=== PATIENT | female | born 1990 | race Caucasian/White ===

== ENCOUNTER → 2017-04-12 | Outpatient (CLI) | payer BC | LOC: OD 07:59 | PROVIDERS: ATTEND Midwife | DX: O02.1 Missed abortion (principal) | CPT/HCPCS: 36415 ==

== ENCOUNTER 2018-03-04 09:55 | Outpatient (CLI) | payer MEDICAID ==
--- NOTE | 2018-03-04 10:32 | Non Stress Test Report ---
Non Stress Test Datetime Report Generated by CPN: 03/04/2018 10:32 DEMOGRAPHIC EGA NST: 38.5 EGA NST: 35.1 INDICATION Indication for Study: Ordered by Provider MONITORING Monitor Explained: Monitor Explained; Test Explained; Patient Verbalized Understanding Time on Monitor: 03/04/2018 10:09 Time off Monitor: 03/04/2018 10:30 NST Duration: 21 NST INTERVENTIONS NST Interventions: PO Hydration Physician Notified NST: A. Stapleton, CNM BABY A: [id number] BABY A Movement : Present Contraction Frequency : irritability FHR Baseline : 140 Accelerations : 15X15 Decelerations : None Variability : Moderate 6-25bpm NST Review: Meets Criteria for Reactive NST NST Review and Verified By : Jona Bellavance RN NST Results: Reactive NST REPORT Report Trigger: Send Report
[2018-03-04 11:12] LABS: ABSOLUTE LYMPHOCYTES (AUTO) 1.1 10^3/uL (0.5-4.7); ABSOLUTE MONOCYTES (AUTO) 0.5 10^3/uL (0.1-1.4); BASOPHILS % (AUTO) 0.3 % (0-2); EOSINOPHILS % (AUTO) 0.3 % (0-6); HEMATOCRIT 34.9 % (36.0-47.0); HEMOGLOBIN 12.2 g/dL (12.0-15.5); LYMPHOCYTES % (AUTO) 10.1 % (13-45); MEAN CORPUSCULAR HEMOGLOBIN 28.7 pg (27.0-33.4); MEAN CORPUSCULAR HGB CONC 35.1 g/dL (32.0-36.0); MEAN CORPUSCULAR VOLUME 82 fl (80-97); MONOCYTES % (AUTO) 4.8 % (3-13); PLATELET COUNT 142 10^3/uL (150-450); RED BLOOD COUNT 4.26 10^6/uL (3.72-5.28); RED CELL DISTRIBUTION WIDTH 14.7 % (11.5-14.0); SEGMENTED NEUTROPHILS % (AUTO) 84.5 % (42-78); TOTAL CELLS COUNTED % (AUTO) 100 %; WHITE BLOOD COUNT 10.6 10^3/uL (4.0-10.5)
[2018-03-04 11:19] LABS: APPEARANCE,URINE CLEAR; BILIRUBIN,URINE NEGATIVE (NEGATIVE); COLOR,URINE YELLOW; GLUCOSE, URINE NEGATIVE (NEGATIVE); KETONES,URINE TRACE mg/dL (NEGATIVE); LEUKOCYTE ESTERASE,URINE NEGATIVE (NEGATIVE); NITRITE,URINE NEGATIVE (NEGATIVE); PROTEIN,URINE NEGATIVE (NEGATIVE); URINE SPECIFIC GRAVITY 1.005; UROBILINOGEN,URINE NEGATIVE mg/dL (<2.0)
[2018-03-04 11:38] LABS: ALANINE AMINOTRANSFERASE 27 U/L (9-52); ALBUMIN 2.8 g/dL (3.5-5.0); ALKALINE PHOSPHATASE 103 U/L (38-126); ANION GAP 8 (5-19); ASPARTATE AMINO TRANSFERASE 19 U/L (14-36); BILIRUBIN,DIRECT 0.2 mg/dL (0.0-0.4); BILIRUBIN,TOTAL 0.6 mg/dL (0.2-1.3); BLOOD UREA NITROGEN 6 mg/dL (7-20); CALCIUM 8.5 mg/dL (8.4-10.2); CARBON DIOXIDE 23 mmol/L (22-30); CHLORIDE 109 mmol/L (98-107); GLUCOSE 86 mg/dL (75-110); POTASSIUM 3.5 mmol/L (3.6-5.0); TOTAL PROTEIN 4.9 g/dL (6.3-8.2); URIC ACID 4.7 mg/dL (2.5-6.2)
[2018-03-04 11:47] LABS: UR PRO/CREAT RATIO RESULT 0.4 mg/mg (0.0-0.2); URINE CREATININE 44.8 mg/dL (16-327); URINE PROTEIN 18.7 mg/dL (<12)
[2018-03-04 11:57] LABS: AMNISURE (ROM) NEGATIVE (NEGATIVE)
[2018-03-04 13:37] LABS: URINE AMPHETAMINES SCREEN NEGATIVE; URINE BARBITURATES SCREEN NEGATIVE; URINE BENZODIAZEPINES SCREEN NEGATIVE; URINE COCAINE SCREEN NEGATIVE; URINE MARIJUANA (THC) SCREEN NEGATIVE; URINE METHADONE SCREEN NEGATIVE; URINE PHENCYCLIDINE SCREEN NEGATIVE
== END 2018-03-04 12:27 | disposition home or self-care (01) ==
LOC: LC 09:55
PROVIDERS: ATTEND Obstetrics & Gynecology
PROC: 4A1HXCZ Monitoring of Products of Conception, Cardiac Rate, External Approach (ICD-10-PCS; principal; 2018-03-04)
DX: Z36.89 Encounter for other specified antenatal screening (principal)
CPT/HCPCS: 36415; 59025; 80053; 80307; 81005; 82570; 83615; 84112; 84156; 84550; 85025

== ENCOUNTER 2018-03-05 16:27 | Outpatient (CLI) | payer MEDICAID ==
[2018-03-05 17:16] LABS: AMNISURE (ROM) NEGATIVE (NEGATIVE)
[2018-03-05 17:16] LABS: APPEARANCE,URINE SLIGHTLY-CLOUDY; BILIRUBIN,URINE NEGATIVE (NEGATIVE); COLOR,URINE YELLOW; GLUCOSE, URINE NEGATIVE (NEGATIVE); KETONES,URINE NEGATIVE (NEGATIVE); LEUKOCYTE ESTERASE,URINE NEGATIVE (NEGATIVE); NITRITE,URINE NEGATIVE (NEGATIVE); PROTEIN,URINE NEGATIVE (NEGATIVE); URINE SPECIFIC GRAVITY 1.006; UROBILINOGEN,URINE NEGATIVE mg/dL (<2.0)
[2018-03-05 17:36] LABS: URINE AMPHETAMINES SCREEN NEGATIVE; URINE BARBITURATES SCREEN NEGATIVE; URINE BENZODIAZEPINES SCREEN NEGATIVE; URINE COCAINE SCREEN NEGATIVE; URINE MARIJUANA (THC) SCREEN NEGATIVE; URINE METHADONE SCREEN NEGATIVE; URINE PHENCYCLIDINE SCREEN NEGATIVE
--- NOTE | 2018-03-05 17:53 | Non Stress Test Report ---
Non Stress Test Datetime Report Generated by CPN: 03/05/2018 17:53 DEMOGRAPHIC EGA NST: 38.6 INDICATION Indication for Study: Other Indication for Study (NST) Other: Labor check MONITORING Monitor Explained: Monitor Explained; Test Explained; Patient Verbalized Understanding Time on Monitor: 03/05/2018 17:00 Time off Monitor: 03/05/2018 17:38 NST Duration: 38 NST INTERVENTIONS NST Interventions: PO Hydration Physician Notified NST: Dr. Derrick BABY A: [id number] BABY A Movement : Present Contraction Frequency : Irregular FHR Baseline : 135 Accelerations : 15X15 Decelerations : None Variability : Moderate 6-25bpm NST Review: Meets Criteria for Reactive NST NST Review and Verified By : GEOFF Ballard Results: Reactive NST REPORT Report Trigger: Send Report
== END 2018-03-05 17:50 | disposition home or self-care (01) ==
LOC: LC 16:27
PROVIDERS: ATTEND Obstetrics & Gynecology
PROC: 4A1HXCZ Monitoring of Products of Conception, Cardiac Rate, External Approach (ICD-10-PCS; principal; 2018-03-05)
DX: Z36.89 Encounter for other specified antenatal screening (principal)
CPT/HCPCS: 59025; 84112; 81005; 80307; Q0114

== ENCOUNTER 2018-03-06 05:05 | Inpatient (IN) | payer MEDICAID ==
[2018-03-06 05:29] LABS: APPEARANCE,URINE CLEAR; BILIRUBIN,URINE NEGATIVE (NEGATIVE); COLOR,URINE YELLOW; GLUCOSE, URINE NEGATIVE (NEGATIVE); KETONES,URINE NEGATIVE (NEGATIVE); LEUKOCYTE ESTERASE,URINE NEGATIVE (NEGATIVE); NITRITE,URINE NEGATIVE (NEGATIVE); PROTEIN,URINE NEGATIVE (NEGATIVE); URINE SPECIFIC GRAVITY 1.004; UROBILINOGEN,URINE NEGATIVE mg/dL (<2.0)
[2018-03-06 05:47] LABS: URINE AMPHETAMINES SCREEN NEGATIVE; URINE BARBITURATES SCREEN NEGATIVE; URINE BENZODIAZEPINES SCREEN NEGATIVE; URINE COCAINE SCREEN NEGATIVE; URINE MARIJUANA (THC) SCREEN NEGATIVE; URINE METHADONE SCREEN NEGATIVE; URINE PHENCYCLIDINE SCREEN NEGATIVE
--- NOTE | 2018-03-06 07:05 | Non Stress Test Report ---
Non Stress Test Datetime Report Generated by CPN: 03/06/2018 07:05 DEMOGRAPHIC EGA NST: 39.0 INDICATION Indication for Study: Ordered by Provider Indication for Study (NST) Other: LC URINE RESULTS Urine Protein, NST: Negative Urine Ketones - NST: Negative Urine Glucose - NST: Negative Urine Blood - NST: Negative MONITORING Time on Monitor: 03/06/2018 05:23 Time off Monitor: 03/06/2018 05:58 NST Duration: 35 NST INTERVENTIONS NST Interventions: PO Hydration Physician Notified NST: Derrick BABY A: [id number] BABY A Movement : Present Contraction Frequency : 3-6 FHR Baseline : 135 Accelerations : 15X15 Decelerations : None Variability : Moderate 6-25bpm NST Review: Meets Criteria for Reactive NST NST Review and Verified By : TETO Tanner NST Results: Reactive NST REPORT Report Trigger: Send Report
[2018-03-06] MEDS ORDERED: RINGERS SOLUTION,LACTATED 1,000 ML IV ONE (08:33)
[2018-03-06] MEDS ORDERED: MISOPROSTOL 0.2 MG TABLET ONE (09:11)
[2018-03-06] MEDS ORDERED: EPHEDRINE SULFATE INJ 50 MG/1 ML AMPULE ONE (09:12)
[2018-03-06] MEDS ORDERED: FENTANYL/BUPIVACAINE/NS/PF 300 MCG/150 ML RTUINJ EPI ONE (09:12)
[2018-03-06] MEDS ORDERED: LIDOCAINE 1% INJ-PF (10 MG/ML) 30 ML SDV ONE (09:12)
[2018-03-06] MEDS ORDERED: OXYTOCIN/NORMAL SALINE 20 UNIT/1,000 ML RTUINJ ONE (09:13)
[2018-03-06] MEDS ORDERED: BUPIVACAINE HCL 0.25 % INJ/PF (2.5 MG/1 ML) 30 ML VIAL ONE (09:13)
[2018-03-06 10:04] LABS: ABSOLUTE MONOCYTES (AUTO) 0.5 10^3/uL (0.1-1.4); ABSOLUTE NEUT (AUTO) 11.2 10^3/uL (1.7-8.2); BASOPHILS % (AUTO) 0.3 % (0-2); EOSINOPHILS % (AUTO) 0.1 % (0-6); LYMPHOCYTES % (AUTO) 7.7 % (13-45); MEAN CORPUSCULAR HGB CONC 34.2 g/dL (32.0-36.0); MEAN CORPUSCULAR VOLUME 82 fl (80-97); MONOCYTES % (AUTO) 3.9 % (3-13); PLATELET COUNT 142 10^3/uL (150-450); RED BLOOD COUNT 4.27 10^6/uL (3.72-5.28); RED CELL DISTRIBUTION WIDTH 14.7 % (11.5-14.0); TOTAL CELLS COUNTED % (AUTO) 100 %; WHITE BLOOD COUNT 12.7 10^3/uL (4.0-10.5)
--- NOTE | 2018-03-06 10:13 | Admission Physical ---
Datetime Report Generated by CPN: 03/06/2018 10:13 CURRENT ADMISSION Hx Assessment: The History has been Reviewed and is Current Chief Complaint: Uterine Contractions Indication for Induction: Not Applicable Admit Impression : Term, Intrauterine ; Active Labor Admit Plan: Admit to Unit; Initiate Labor Protocol ALLERGIES Medication Allergies: No Medication Allergies: No Known Allergies (03/06/2018) Latex: No Latex Allergies OBSTETRICAL HISTORY EDC: 03/13/2018 00:00 : 3 Para: 0 Term: 0 : 0 SAB: 2 IAB: 0 Ectopic: 0 Livin Cesareans: 0 VBACs: 0 Multiple Births: 0 Gestational Diabetes: No Rh Sensitization: No Incompetent Cervix: No FADUMO: No Infertility: No ART Treatment: No Uterine Anomaly: No IUGR: No Hx Previous C/S: No Macrosomia: No Hx Loss/Stillborn: No PIH: No Hx : No Placenta Previa/Abruption: No Depression/PP Depression: No PTL/PROM: No Post Hemorrhage: No Current Procedures: Ultrasound Obstetrical History Comments: G1- 2015 G2- 2016 G3- current SEE RECORDS Alcohol: No Marijuana : No Cocaine: No Other Illicit Drugs: No Cigarettes: Never Smoker. [id number] MEDICAL HISTORY Diabetes: No Blood Transfusion: No Pulmonary Disease (Asthma, TB): No Breast Disease: No Hypertension: No Breast Surgeon Surgery: No Heart Disease: No Hosp/Surgery: Yes Autoimmune Disorder: No Anesthetic Complications: No Kidney Disease: No Abnormal Pap Smear: No Neuro/Epilepsy: No Psychiatric Disorders: No Other Medical Diseases: No Hepatitis/Liver Disease: No Significant Family History: No Varicosities/Phlebitis: No Trauma/Violence : No Thyroid Dysfunction: No Medical History Comments: wisdom teeth INFECTIOUS HISTORY Gonorrhea: No Chlamydia: No Tuberculosis: No Syphilis: No Hepatitis: No HIV/AIDS Exposure: No Rash or Viral Illness: No HPV: No PHYSICAL EXAM General: Normal HEENT: Deferred Neurologic: Normal Thyroid: Deferred Heart: Normal Lungs: Normal Breast: Deferred Back: Normal Abdomen: Normal Genitourinary Exam: Normal Extremities: Abnormal DTRs: Normal Pelvic Type: Adequate Physical Exam Comments: +3 bilateral lower extremety- pitting edema adequate pelvis per exam Vital Signs: Reviewed Details Vital Signs: mild range BP with 1 severe range VAGINAL EXAM Dilatation: 8 Effacement: 100 Station: -1 Contraction Comments: 3-5 MEMBRANES Membranes: Bulging FETUS A EGA: 39.0 Monitoring: External US Variability: Moderate 6-25bpm Accelerations: 15X15 FHR Category: Category I Estimated Weight (gm): 4089 Presentation: Vertex Admit Comment: 27yo at 39wga into L_D this AM with cervical change. Pt was dx with GHTN earlier this week and completed 24h urine last night, which she was to return this afternoon and will have family bring in for results. Protein/creatinine Ratio 0.4 Sunday and with mild range BPs today so likely pre-e. Denies s/s. also complicated with Dx of Polyhydramnious LESLEY 27cm on 03/04 and suspected macrosomia. Significant medical hx of Acid Reflux, IBS and stomach ulcer in 2013. Also significant for lower extremity varicosities and depression, well controlled and not on medication. Pt. is A pos, RI and GBS neg. Reports positive FM and no concerns other than contractions strong contractions since 2244 last night. Anticipate Vaginal delivery, labor progressing well. Waiting on lab results for epidural placement. PLANS FOR LABOR AND DELIVERY Labor and Delivery: None Pain Management: Epidural Feeding Preference: Breast Benefit of Breast Feed Discussed: Yes Circumcision: Yes INFORMED CONSENT Assignment: Nicanor Pearl MD Signature: with User ID: Rosario : with User ID: Rosario
--- NOTE | 2018-03-06 12:01 | L&D Progress Notes ---
PROGRESS NOTES Datetime Report Generated by CPN: 03/06/2018 12:00 PROGRESS NOTE Impression: Normal Progression of Labor Procedures: Sterile Vag Exam Plan: Continue Present Management Informed Consent Obtained: Vaginal Delivery; Risks, Benefits and Alternatives Discussed Vital Signs : Reviewed Vital Signs Comments: wnl since last exam except for 1 elevated as noted Comment: S: pt. comfortable with epidural placement. Reports complete relief of pain with epidural placement O:VSS (x1 elevation), cervix as stated with asynclitic head A: IUP @ 39w stable, progressing well, ROM with exam -large amount of mec stained fluid P: continue expectant management anticipate delivery, nursery aware of mec. stained fluid. VAGINAL EXAM Dilatation: 8-9 Dilatation: 8 Effacement: 100 Effacement: 100 Station: 0 Station: -1 Contractions: 2-4 Contractions: 3-5 MEMBRANES Membranes: Ruptured Membranes: Bulging Amniotic Fluid Color: Meconium, Light FETUS A Monitoring: External US Variability: Moderate 6-25bpm Accelerations: 15X15 Decelerations: None FHR Category: Category I Estimated Weight (gm): 4089 Presentation: Vertex SIGNATURE SIGNATURE: [id number];14,[id number];13,[id number] SIGNATURE: 13,[id number];14,[id number] SIGNATURE: 14,[id number] SIGNATURE: 14,[id number] SIGNATURE: 14,[id number] SIGNATURE: 14,[id number] Assignment: Nicanor Pearl MD Signature: with User ID: Rosario : with User ID: Rosario
[2018-03-06] MEDS ORDERED: CITRIC ACID/SODIUM CITRATE ORAL SOLN 15 ML UDCUP ONE (13:23)
[2018-03-06] MEDS ORDERED: MORPHINE SULFATE 10 MG/ML INJ ONE (17:21)
--- NOTE | 2018-03-06 18:15 | Warning Signs in Babies ---
VOD Warning Signs Datetime Report Generated by [facility]: 03/06/2018 18:14 VOD#608 -Warning Signs in Babies: Needs to be viewed. (02/07/2018 17:48:Ángel Cook RN)
[2018-03-06] MEDS ORDERED: IBUPROFEN 800 MG TABLET ONE (18:20)
[2018-03-06] MEDS ORDERED: ACETAMINOPHEN WITH CODEINE #3 TABLET ONE (18:20)
[2018-03-06] MEDS ORDERED: GLYCERIN/WITCH HAZEL LEAF 1 EACH MED..PAD TP PRN (18:29)
[2018-03-06] MEDS ORDERED: PROMETHAZINE HCL INJ 25 MG/1 ML VIAL IV PRN (18:29)
[2018-03-06] MEDS ORDERED: ACETAMINOPHEN WITH CODEINE #3 TABLET PO PRN ×2 (18:29)
[2018-03-06] MEDS ORDERED: DIPH/PERTUSS(ACELL)/TETANUS VAC/PF 0.5 ML SYR (>=10YO) IM PRN (18:29)
[2018-03-06] MEDS ORDERED: NA PHOS,M-B/NA PHOS,DI-BA (ADULT) 133 ML ENEMA PR PRN (18:29)
[2018-03-06] MEDS ORDERED: MISOPROSTOL 0.2 MG TABLET PR PRN (18:29)
[2018-03-06] MEDS ORDERED: PSEUDOEPHEDRINE HCL 30 MG TABLET PO PRN (18:29)
[2018-03-06] MEDS ORDERED: MEASLES,MUMPS&RUBELLA VACC/PF 0.5 ML VIAL SUBCUT PRN (18:29)
[2018-03-06] MEDS ORDERED: OXYTOCIN/NORMAL SALINE 20 UNIT/1,000 ML RTUINJ IV PRN (18:29)
[2018-03-06] MEDS ORDERED: MAGNESIUM HYDROXIDE SUSP 30 ML UDCUP PO PRN (18:29)
[2018-03-06] MEDS ORDERED: DIBUCAINE 1% OINTMENT 28 GM TP PRN (18:29)
[2018-03-06] MEDS ORDERED: PROMETHAZINE HCL 25 MG SUPP.RECT PR PRN (18:29)
[2018-03-06] MEDS ORDERED: ACETAMINOPHEN 325 MG TABLET PO PRN (18:29)
[2018-03-06] MEDS ORDERED: DIPHENHYDRAMINE HCL 25 MG CAPSULE PO PRN (18:29)
[2018-03-06] MEDS ORDERED: BENZOCAINE/MENTHOL AEROSOL SPRAY 56 ML TOP PRN (18:29)
[2018-03-06] MEDS ORDERED: PROMETHAZINE HCL 25 MG TABLET PO PRN (18:29)
--- NOTE | 2018-03-06 18:59 | Warning Signs in Babies ---
VOD Warning Signs Datetime Report Generated by [facility]: 03/06/2018 18:59 VOD#608 -Warning Signs in Babies: Viewed with Parent(s)/Family (02/07/2018 17:48:Ángel Cook RN)
--- NOTE | 2018-03-06 19:46 | Delivery Summary ---
Del Sum A-C Datetime Report Generated by CPN: 03/06/2018 19:46 DELIVERY PERSONNEL DELIVERY PERSONNEL: [id number] Delivery Doctor:: Della Aldridge CNM Labor and Delivery Nurse:: Annabelle Ewing RNhydro plant site manager Nurse:: Ángel Cook RN [employer] Consultant/TOP CUTTER: Isis Edward, FLAT IRONER [employer] Consultant/TOP CUTTER: Ana Laura Aguayo TOP CUTTER II MATERNAL INFORMATION Delivery Anesthesia: Epidural Medications After Delivery: Pitocin Drip 20 Units/1000ml NSS; Cytotec 800mcg Per Rectum/Vagina Maternal Complications: None Provider Comments: Pt. progressed to c/c/+1 with urge to push, began pushing and with much effort went on to deliver a viable baby boy in OA position which then restituted to ONIEL. Baby with strong respiratory effort and cry spontaneously at . Baby placed on maternal abdomen skin to skin, cord allowed to stop pulsating then clamped x2 and cut by FOB, cord blood obtained. Placenta delivered spontaneously intact 3vc noted, sent to lab. Fundus firm @ U-1 moderate bleeding which was then found to be coming from bilateral sidewall lacerations which were repaired as stated and hemostatic. Poor tissue integrity making perineal repair difficult. Dr. Pearl in room and repaired MLL and right labial extension which were well approximated and hemostatic. cytotec given 800mcg VT given for precaution. Pt. and baby in room stable at this time. Nursery in room for delivery due to particulate meconium. Bleeding stable. Labs reviewed 24hr urine back and pre-eclampsia confirmed by labs. LABOR SUMMARY EDC: 03/13/2018 00:00 No. Babies in Womb: 1 Attempted: No LABOR INFORMATION Reason for Induction: Not Applicable Onset of Labor: 03/06/2018 08:20 Complete Dilatation: 03/06/2018 14:34 Oxytocin: N/A Group B Beta Strep: Negative Steroids Given: None Reason Steroids Not Administered: Not Applicable MEMBRANES Membranes Rupture Method: Artificial Rupture of Membranes: 03/06/2018 11:49 Length of Rupture (hr): 5.17 Amniotic Fluid Color: Light Meconium Amniotic Fluid Amount: Large Amniotic Fluid Odor: Normal STAGES OF LABOR Stage 1 hr: 6 Stage 1 min: 14 Stage 2 hr: 2 Stage 2 min: 25 Stage 3 hr: 0 Stage 3 min: 5 Total Time in Labor hr: 8 Total Time in Labor min: 44 VAGINAL DELIVERY Episiotomy: None Laceration #1: Vaginal Laceration Extension #1: Second Degree Laceration #2: Perineal Laceration Extension #2: Second Degree Other Laceration: right labial Laceration Repair: Yes Laceration Repair Note: Bilateral sidewall lacerations repaired with 2-[address]- hemostasis achieved 2nd degree MLL with right labial extension repaired by Dr. Pearl. Poor tissue integrity and edema making repair difficulty. Hemostatic. Sponge Count Correct: Yes Sharps Count Correct: Yes CSECTION DELIVERY Primary Indication: N/A BABY A INFORMATION Infant Delivery Date/Time: 03/06/2018 16:59 Method of Delivery: Vaginal Born in Route : No : N/A Forceps: N/A Vacuum Extraction: N/A Shoulder Dystocia : No PRESENTATION/POSITION BABY A Presentation: Cephalic Cephalic Presentation: Vertex Vertex Position: Right Occipital Anterior Breech Presentation: N/A PLACENTA INFORMATION BABY A Placenta Delivery Time : 03/06/2018 17:04 Placenta Method of Delivery: Spontaneous Placenta Status: Delivered SCORES BABY A Heart Rate 1 min: >100 bpm Resp Effort 1 min: Good Cry Reflex Irritability 1 min: Cough or Sneeze or Pulls Away Muscle Tone 1 min: Active Motion Color 1 min: Body [place], Extremities Blue Resuscitation Effort 1 min: N/A SCORE 1 MIN: 9 Heart Rate 5 min: >100 bpm Resp Effort 5 min: Good Cry Reflex Irritability 5 min: Cough or Sneeze or Pulls Away Muscle Tone 5 min: Active Motion Color 5 min: Completely [place]ouck Resuscitation Effort 5 min: N/A SCORE 5 MIN: 10 INFANT INFORMATION BABY A Gestational Age at Delivery: 39.0 Gestational Status: Full Term- 39- 40.6 Weeks Infant Outcome : Liveborn Infant Condition : Stable Sex: Male IDENTIFICATION BABY A Infant Verification Date/Time: 03/06/2018 17:39 ID Band Number: [id number] Mother's Name Verified: Yes RN Verifying : Sabi Meza RN, D. Sprouse, US WEIGHT/LENGTH BABY A Birthweight (gm): 4160 Weight (lb): 9 Weight (oz): 3 Infant Length (in): 22.00 Infant Length (cm): 55.88 CORD INFORMATION BABY A No. Cord Vessels: 3 Nuchal Cord : N/A Cord Blood Taken: Yes-For Storage (Mom's Blood type +) Infant Suction: None ASSESSMENT BABY A Infant Complications: None Physical Findings at Delivery: Within Normal Limits Respirations: Appears Normal Skin to Skin: Yes Skin to Skin Time (min): 120 Infant Care By: Pipe Pearl RN Transferred To: Remains with Mother SIGNATURES Assignment: Nicanor Pearl MD Signature: with User ID: Rosario : with User ID: Rosario
[2018-03-07] MEDS: FAMOTIDINE 20 MG TABLET PO SCH ×3 (00:51→21:57)
[2018-03-07] MEDS: IBUPROFEN 800 MG TABLET PO SCH ×4 (00:51→21:58)
[2018-03-07 08:27] LABS: HEMATOCRIT 28.8 % (36.0-47.0); HEMOGLOBIN 10.1 g/dL (12.0-15.5); MEAN CORPUSCULAR HEMOGLOBIN 28.8 pg (27.0-33.4); MEAN CORPUSCULAR VOLUME 82 fl (80-97); PLATELET COUNT 135 10^3/uL (150-450); RED CELL DISTRIBUTION WIDTH 15.2 % (11.5-14.0); WHITE BLOOD COUNT 16.7 10^3/uL (4.0-10.5)
[2018-03-07 08:56] LABS: ALANINE AMINOTRANSFERASE 32 U/L (9-52); ALBUMIN 2.2 g/dL (3.5-5.0); ALKALINE PHOSPHATASE 75 U/L (38-126); ANION GAP 9 (5-19); ASPARTATE AMINO TRANSFERASE 42 U/L (14-36); BILIRUBIN,DIRECT 0.2 mg/dL (0.0-0.4); BILIRUBIN,TOTAL 0.3 mg/dL (0.2-1.3); BLOOD UREA NITROGEN 6 mg/dL (7-20); CALCIUM 8.2 mg/dL (8.4-10.2); CARBON DIOXIDE 21 mmol/L (22-30); CHLORIDE 110 mmol/L (98-107); GLUCOSE 96 mg/dL (75-110); POTASSIUM 3.8 mmol/L (3.6-5.0); SODIUM 139.6 mmol/L (137-145); TOTAL PROTEIN 4.2 g/dL (6.3-8.2)
[2018-03-07 08:57] LABS: URIC ACID 5.1 mg/dL (2.5-6.2)
--- NOTE | 2018-03-07 09:28 | PDOC PROGRESS REPORT ---
Subjective-OB Progress Note for:: 03/07/18 Subjective: with help, reports bleeding slowing, tolerating diet, pain controlled with current meds. complaining of painful hemorrhoids Physical Exam (OB) Vital Signs: Temp Pulse Resp BP Pulse Ox 98.7 F 84 20 128/75 H 100 03/07/18 07:33 03/07/18 07:33 03/07/18 07:33 03/07/18 07:33 03/07/18 07:33 Intake & Output 03/06/18 03/07/18 03/08/18 06:59 06:59 06:59 Weight 99.1 kg - Abdomen Description: Soft, Round Hernia Present: No Fundal Description: Firm, Midline Fundal Height: u/u - u/2 - Abdominal Tenderness: Nontender - Extremities Lower extremities: Edema - present, Laura's sign - neg Ankle: Nontender Objective-Diagnostic Laboratory: 03/07/18 07:37 03/07/18 07:37 03/06/18 03/06/18 03/07/18 09:37 09:37 07:37 WBC 12.7 H RBC 4.27 Hgb 12.0 Hct 35.0 L MCV 82 MCH 28.0 MCHC 34.2 RDW 14.7 H Plt Count 142 L Seg Neutrophils % 88.0 H Lymphocytes % 7.7 L Monocytes % 3.9 Eosinophils % 0.1 Basophils % 0.3 Absolute Neutrophils 11.2 H Absolute Lymphocytes 1.0 Absolute Monocytes 0.5 Absolute Eosinophils 0.0 Absolute Basophils 0.0 Sodium 139.6 Potassium 3.8 Chloride 110 H Carbon Dioxide 21 L Anion Gap 9 BUN 6 L Creatinine 0.74 Est GFR ( Amer) > 60 Est GFR (Non-Af Amer) > 60 Glucose 96 Uric Acid 5.1 Calcium 8.2 L Total Bilirubin 0.3 AST 42 H ALT 32 Alkaline Phosphatase 75 Total Protein 4.2 L Albumin 2.2 L Blood Type A POSITIVE Antibody Screen NEGATIVE 03/07/18 07:37 WBC 16.7 H RBC 3.50 L Hgb 10.1 L Hct 28.8 L MCV 82 MCH 28.8 MCHC 35.0 RDW 15.2 H Plt Count 135 L Seg Neutrophils % Lymphocytes % Monocytes % Eosinophils % Basophils % Absolute Neutrophils Absolute Lymphocytes Absolute Monocytes Absolute Eosinophils Absolute Basophils Sodium Potassium Chloride Carbon Dioxide Anion Gap BUN Creatinine Est GFR ( Amer) Est GFR (Non-Af Amer) Glucose Uric Acid Calcium Total Bilirubin AST ALT Alkaline Phosphatase Total Protein Albumin Blood Type Antibody Screen Assessment and Plan(PN) - Assessment and Plan (1) Hemorrhoids Qualifiers: Hemorrhoid type: unspecified Qualified Code(s): K64.9 - Unspecified hemorrhoids Is this a current diagnosis for this admission?: Yes (2) Obstetrical laceration Is this a current diagnosis for this admission?: Yes (3) Delivery normal Is this a current diagnosis for this admission?: Yes - Time Spent with Patient Time with patient: Less than 15 minutes Medications reviewed and adjusted accordingly: Yes - Disposition Anticipated Discharge: Home Within: within 24 hours
[2018-03-07] MEDS: PRENATAL VITAMIN W DHA CAPSULE PO SCH (10:05)
[2018-03-07] MEDS: DOCUSATE SODIUM 100 MG CAPSULE PO SCH ×2 (10:05→17:42)
[2018-03-07] MEDS: FERROUS SULFATE 325 MG TABLET PO SCH ×2 (10:05→17:42)
[2018-03-07] MEDS: SENNOSIDES/DOCUSATE 8.6-50 MG 1 EACH TABLET PO SCH (10:05)
[2018-03-07] MEDS: HYDROCORTISONE ACETATE 25 MG SUPP.RECT PR SCH ×2 (10:08→17:42)
[2018-03-08] MEDS: IBUPROFEN 800 MG TABLET PO SCH ×2 (05:41→13:04)
[2018-03-08 08:30] VITALS: BP 133/81
--- NOTE | 2018-03-08 09:50 | PDOC PROGRESS REPORT ---
Subjective-OB Progress Note for:: 03/08/18 Subjective: OOB in room and halls, hsb at BS, feeling good, ready to go home, sore perineum , scant lochia Physical Exam (OB) Vital Signs: Temp Pulse Resp BP Pulse Ox 98.6 F 85 16 133/81 H 100 03/08/18 07:24 03/08/18 07:24 03/08/18 07:24 03/08/18 07:24 03/08/18 07:24 Intake & Output 03/07/18 03/08/18 03/09/18 06:59 06:59 06:59 Intake Total 350 Output Total 600 Balance -250 - PIH/Pre-Eclampsia DTR's: 1 + Clonus: Negative Headache: Absent Epigastric Pain: No Visual Changes: No - Lochia Lochia Amount: Scant < 10 ml Lochia Color: Rubra/Red - Abdomen Description: Soft, Round Hernia Present: No Fundal Description: Firm, Midline Fundal Height: u/u - u/2 Objective-Diagnostic Laboratory: 03/07/18 07:37 03/07/18 07:37 Assessment and Plan(PN) - Assessment and Plan (1) Obstetrical laceration Is this a current diagnosis for this admission?: Yes (3) Pre-eclampsia Qualifiers: Trimester: third trimester Qualified Code(s): O14.93 - Unspecified pre- eclampsia, third trimester Is this a current diagnosis for this admission?: Yes (4) Delivery normal Is this a current diagnosis for this admission?: Yes - Time Spent with Patient Time with patient: Less than 15 minutes Medications reviewed and adjusted accordingly: Yes - Disposition Anticipated Discharge: Home Within: Other - home today
[2018-03-08] MEDS: DOCUSATE SODIUM 100 MG CAPSULE PO SCH (09:56)
[2018-03-08] MEDS: PRENATAL VITAMIN W DHA CAPSULE PO SCH (09:57)
[2018-03-08] MEDS: FAMOTIDINE 20 MG TABLET PO SCH (09:57)
[2018-03-08] MEDS: SENNOSIDES/DOCUSATE 8.6-50 MG 1 EACH TABLET PO SCH (09:57)
[2018-03-08] MEDS: FERROUS SULFATE 325 MG TABLET PO SCH (09:57)
--- NOTE | 2018-03-08 09:58 | PDOC DISCHARGE SUMMARY ---
Final Diagnosis Discharge Date: 03/08/18 - Final Diagnosis (1) Obstetrical laceration Is this a current diagnosis for this admission?: Yes (2) Polyhydramnios affecting Is this a current diagnosis for this admission?: Yes (3) Pre-eclampsia Is this a current diagnosis for this admission?: Yes (4) Delivery normal Is this a current diagnosis for this admission?: Yes Discharge Data - Discharge Medication Prescriptions: Benzocaine/Menthol [Dermoplast Aerosol [place] 56 ml] 1 applic TOP PRN PRN #1 can PRN Reason: Dibucaine 1% Ointment [Nupercainal 1% Oint 28 gm] 1 applic TP PRN PRN #1 tube PRN Reason: Ibuprofen [Motrin 800 mg Tablet] 800 mg PO Q8 #30 tablet Home Medications: Pnv No.95/Ferrous Fum/Folic AC [ Vitamins Tablet] 1 each PO DAILY Benzocaine/Menthol [Dermoplast Aerosol [place] 56 ml] 1 applic TOP PRN PRN #1 can 03/08/18 Dibucaine 1% Ointment [Nupercainal 1% Oint 28 gm] 1 applic TP PRN PRN #1 tube Ibuprofen [Motrin 800 mg Tablet] 800 mg PO Q8 #30 tablet 03/08/18 Gestational Age: 39 Reason(s) for Admission: Onset of Labor Procedures: NST, Ultrasound Intrapartum Procedure(s): Spontaneous Vaginal Delivery Complication(s): Laceration-Vaginal, Laceration-Perineal, Laceration- Labial Laceration-Degree: 2nd - [place] Data Baby 1 Male at 1 minute: 9 at 5 minutes: 10 Weight: 4.167 kg Home with Mother: Yes Complications: No - Diagnosis Test Laboratory: Temp Pulse Resp BP Pulse Ox 98.6 F 85 16 133/81 H 100 03/08/18 07:24 03/08/18 07:24 03/08/18 07:24 03/08/18 07:24 03/08/18 07:24 03/06/18 03/06/18 03/07/18 05:14 09:37 07:37 RBC 4.27 3.50 L Hgb 12.0 10.1 L Hct 35.0 L 28.8 L Urine Opiates Screen NEGATIVE - Discharge information/Instructions Discharge Activity: Activity As Tolerated, No Lifting Over 10 Pounds, No Lifting /Push/Pulling, Pelvic Rest Discharge Diet: As Tolerated, Regular Disposition: HOME, SELF-CARE Follow up with: [facility] in: 2, Weeks
[2018-03-08] MEDS: HYDROCORTISONE ACETATE 25 MG SUPP.RECT PR SCH (10:53)
== END 2018-03-08 16:35 | disposition home or self-care (01) | DRG 774 ==
LOC: LC 05:05 → LR 08:24 → 2S 20:16
PROVIDERS: ADMIT Obstetrics & Gynecology Gynecology; ATTEND Obstetrics & Gynecology Gynecology
PROC: 10E0XZZ Delivery of Products of Conception, External Approach (ICD-10-PCS; principal; 2018-03-06)
PROC: 0KQM0ZZ Repair Perineum Muscle, Open Approach (ICD-10-PCS; 2018-03-06)
PROC: 0UQMXZZ Repair Vulva, External Approach (ICD-10-PCS; 2018-03-06)
DX: O13.4 Gestational [pregnancy-induced] hypertension without significant proteinuria, complicating childbirth (principal); O67.8 Other intrapartum hemorrhage; O40.3XX0 Polyhydramnios, third trimester, not applicable or unspecified; O14.94 Unspecified pre-eclampsia, complicating childbirth; O70.1 Second degree perineal laceration during delivery; O87.4 Varicose veins of lower extremity in the puerperium; O99.344 Other mental disorders complicating childbirth; F32.9 Major depressive disorder, single episode, unspecified; Z3A.39 39 weeks gestation of pregnancy; Z37.0 Single live birth
CPT/HCPCS: 36415; 80053; 80307; 81005; 83615; 84550; 85025; 85027; 86592; 86850; 86900; 86901; 88307; 94760; J2270; J2590; J3010; J3490

== ENCOUNTER → 2020-03-11 | Outpatient (CLI) | payer BC, MEDICAID | LOC: OD 13:50 | PROVIDERS: ATTEND Midwife | DX: Z34.81 Encounter for supervision of other normal pregnancy, first trimester (principal) | CPT/HCPCS: 36415; 84144 ==